=== PATIENT | male | born 2000 | race Caucasian/White ===

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

== ENCOUNTER → 2024-08-01 | Outpatient (REF) ==
[~2024-08-01] MED LIST: TESS100C PO
== END ==
LOC: M EMP 11:26
PROVIDERS: ATTEND Family Medicine
DX: Z01.89 Encounter for other specified special examinations (principal)